=== PATIENT | female | born 1985 | race Caucasian/White ===

== ENCOUNTER 2021-05-26 11:25 | Emergency (ER) | payer OTHER, SELFPAY ==
[2021-05-26 11:32] VITALS: BP 160/98; PULSE 93; RESP 16; TEMP 37; O2SAT 100
--- NOTE | 2021-05-26 11:51 | ED.URI ---
HPI - URI/Sore Throat General Chief Complaint: Upper Respiratory Infection Stated Complaint: pos strep Time Seen by Provider: 05/26/21 11:52 Source: patient History of Present Illness HPI Narrative: patient presents with a sore throat. no problems swallowing no drooling. denies any other symptoms. Related Data Home Medications Medication Instructions Recorded Confirmed amlodipine 05/26/21 Allergies Allergy/AdvReac Type Severity Reaction Status Date / Time No Known Allergies Allergy Unverified 04/04/17 11:26 Review of Systems Review of Systems: CONSTITUTIONAL: Denies fever, chills, or sweats. EYES: Denies visual changes, redness, or discharge. ENT: Denies rhinorrhea, congestion, sore throat, or otalgia. CARDIOVASCULAR: Denies chest pain, palpitations, or edema. RESPIRATORY: Denies cough or dyspnea. GASTROINTESTINAL: Denies abdominal pain, nausea, vomiting, or diarrhea. GENITOURINARY: Denies dysuria or hematuria. SKIN: Denies rash or itching. MUSCULOSKELETAL: Denies back pain, joint pain, or myalgia. NEUROLOGIC: Denies headache, numbness, or weakness. PSYCHIATRIC: Denies anxiety or depression. PMFSH Comments At time of signature, agree with nursing past medical, surgical, social and family history. There is no relevant family history pertinent to the presenting complaint Exam Narrative: GENERAL: Well-appearing, well-nourished, and in no acute distress. HEAD: Normocephalic, atraumatic. EYES: PERRLA and EOMI. ENT: Nares clear, no rhinorrhea or epistaxis. Mucous membranes moist. Mild pharyngeal erythremia no exudate no trismus no drooling able to open mouth fully NECK: Supple. CHEST: Clear to auscultation. No respiratory distress. HEART: Regular rate and rhythm. No murmur heard. Normal peripheral pulses. ABDOMEN: Soft, nontender, nondistended, normal active bowel sounds. EXTREMITIES: Normal range of motion. No edema. SKIN: Warm, dry, no rash. NEURO: No focal deficits. Alert and oriented x3. [place] Coma Scale Eye Opening: Spontaneous 4 [place] Coma Scale Motor: Obeys Commands 6 [place] Coma Scale Verbal: Oriented 5 [place] Coma Scale Total 15 Course Course Level of Care: Express Care Visit Vital Signs Vital signs: Vital Signs Temperature 37.0 C 02/20/22 11:32 Pulse Rate 93 05/26/21 11:32 Respiratory Rate 16 05/26/21 11:32 Blood Pressure 160/98 H 05/26/21 11:32 Pulse Oximetry 100 05/26/21 11:32 Temperature 37.0 C 05/26/21 11:32 Pulse Rate 93 05/26/21 11:32 Respiratory Rate 16 05/26/21 11:32 Blood Pressure 160/98 H 05/26/21 11:32 Pulse Oximetry 100 05/26/21 11:32 Your strep test today was negative we will notify you in 48 to 72 hours if your culture is positive and place you on antibiotic at that time. Please MICA schedule a followup visit with your personal physician for further evaluation and treatment. Including recheck and discussion of your blood pressure. If your symptoms persist, change or worsen significantly before you can contact your personal physician then please, without delay, go to the emergency department for further evaluation Discussed with patient hypertension. Today's blood pressure higher than recommended range. Discussed importance of follow -up with PCP and CV events related to HTN. Currently patient denies headache, vision changes, CP or shortness of breath. Critical dx considered and discussed with pt. Educated patient on red flag s/s and to go to ED if s/s occur. Discussed with pt when to return to [facility] or primary care provider. Pt gave verbal undertstanding, all questions were answered, and pt was agreeable to plan MDM - URI/Sore Throat Differential Diagnosis Differential diagnosis: Likely upper respiratory infection, croup, otitis media, sinusitis, viral infection, bronchitis, influenza and pharyngitis Lab Data Labs: Strep Screen Presumptive Negative *(Reference Range: Negative)*
== END 2021-05-26 12:02 | disposition home or self-care (01) ==
PROVIDERS: Emergency Provider Nurse Practitioner Family; PCP Internal Medicine
DX: J02.9 Acute pharyngitis, unspecified (principal); I10 Essential (primary) hypertension
CPT/HCPCS: 87081; 87880; 99203; G0463

== ENCOUNTER 2022-05-16 13:19 | Outpatient (CLI) | payer OTHER, SELFPAY ==
--- NOTE | ~2022-05-16 | MMUS_ITS ---
EXAMINATION: MM diagnostic prabha BI w onesimo, US breast LT complete HISTORY: Left breast lump, unspecified site TECHNIQUE: ML, MLO and CC 3-D tomosynthesis images of both breasts were performed and synthetic 2-D i mages were generated. CAD analysis was submitted and interpreted. High resolution complete left breas t ultrasound examination including all 4 quadrants and subareolar area was performed. COMPARISON: None BREAST PARENCHYMAL COMPOSITION: The breasts are almost entirely fatty. FINDINGS: MAMMOGRAPHIC FINDINGS: No suspicious mass or architectural distortion, malignant calcification, skin thickening or retractio n is detected. ULTRASOUND: The patient was unaware of the site of the reported left breast lump. Real-time imaging of the complete left breast reveals no suspicious mass or shadowing, cyst or other significant sonographic abnormality. IMPRESSION: 1. Negative examination 2. Routine annual mammographic screening is recommended beginning at age 40 BI-RADS Category 1: Negative Reviewed, dictated and finalized at location A. S SERVICE ASSISTANT IMPRESSION: 1. Negative examination 2. Routine annual mammographic screening is recommended beginning at age 40 BI-RADS Category 1: Negative
== END 2022-05-16 13:20 | disposition home or self-care (01) ==
PROVIDERS: PCP Internal Medicine; Visit Provider Nurse Practitioner
DX: N63.20 Unspecified lump in the left breast, unspecified quadrant (principal)
CPT/HCPCS: 76641; 77062; 77066; G0279